=== PATIENT | male | born 1970 | race Asian ===

== ENCOUNTER 2019-07-13 13:47 | Emergency (ER) | payer BC ==
[~2019-07-13] VITALS: Ht 172.7 cm; Wt 93.0 kg
[2019-07-13 14:14] VITALS: BP_SYST 159
[2019-07-13] MEDS ORDERED: EPINEPHrine 1 MG/ML AMP IM ONE (14:45)
[2019-07-13] MEDS ORDERED: DIPHENHYDRAMINE INJ 50 MG/ML VIAL IVP ONE (14:45)
[2019-07-13] MEDS ORDERED: methylPREDNISolone SOD SUCC/PF 62.5 MG/ML VIAL IVP ONE (14:45)
[2019-07-13 16:03] VITALS: BP_SYST 159
== END 2019-07-13 16:04 | disposition home or self-care (01) ==
LOC: SED 13:47
DX: L25.5 Unspecified contact dermatitis due to plants, except food (principal)
CPT/HCPCS: 96372; 96374; 96375; 99283; J0171; J1200; J2930

== ENCOUNTER 2023-09-27 23:40 | Emergency (ER) | payer OTHER ==
[~2023-09-27] VITALS: Ht 172.7 cm; Wt 97.5 kg
[~2023-09-27 23:40] MED LIST: AMLO5TAB4 PO; VIS25 PO
[2023-09-28] VITALS: BP_SYST 155; PULSE 73; RESP 19; TEMP 97.3; O2SAT 98
[2023-09-28] MEDS ORDERED: MED4 PO (00:21)
[2023-09-28] MEDS ORDERED: PHEDM120 PO (00:22)
[2023-09-28 00:26] VITALS: BP_SYST 155; PULSE 73; RESP 19; TEMP 97.3; O2SAT 98
== END 2023-09-28 00:26 | disposition home or self-care (01) ==
LOC: SED 23:40
DX: J45.909 Unspecified asthma, uncomplicated (principal); R05.3 Chronic cough; I10 Essential (primary) hypertension; Z79.899 Other long term (current) drug therapy
CPT/HCPCS: 99283